=== PATIENT | male | born 1980 | race Hispanic/Latino ===

== ENCOUNTER 2017-06-12 21:57 | Emergency (ER) | payer SELFPAY ==
[2017-06-12] MEDS ORDERED: MORPHINE 4 MG/ML SYR ONE (22:54)
[2017-06-12] MEDS ORDERED: ONDANSETRON 4 MG/2 ML VIAL ONE (22:54)
[2017-06-12] MEDS ORDERED: NA CHLORIDE 0.9% 1,000 ML ONE (22:54)
[2017-06-12 23:12] LABS: Absolute Lymphocytes (CBC) 3.7 K/uL (0.7-4.9); Absolute Monocytes 1.1 K/uL (0.1-1.3); Basophils % 0.7 % (0-1.3); Eosinophils % 0.8 % (0-4.4); Hematocrit 40.5 % (39.6-49.0); Lymphocytes % 26.6 % (15.3-44.8); MCH 30.9 pg (27.0-35.0); MCV 91.3 fL (80-100); RBC Red Blood Cell Count 4.44 M/uL (4.33-5.43)
[2017-06-12 23:17] LABS: Urine Blood TRACE (NEG); Urine Glucose NEGATIVE (NEG); Urine Protein NEGATIVE (NEG); Urine Specific Gravity 1.025 (1.005-1.030)
[2017-06-12 23:24] LABS: Potassium 4.1 mEq/L (3.6-5.0)
[2017-06-12 23:27] LABS: Urine Bacteria <20 /HPF (NONE SEEN); Urine Culture Reflex Order NOT NEEDED
[2017-06-12 23:30] LABS: Albumin 4.1 g/dL (3.2-5.5); Bilirubin Direct 0.1 mg/dL (0-0.2); Bilirubin Total 0.3 mg/dL (0.3-1.2); Protein, Total 6.8 g/dL (6.0-8.3)
--- NOTE | 2017-06-13 00:42 | EDPHYS ---
Physician Documentation [facility] Name: Tom Thrasher Age: 36 yrs Sex: Male : 1980 Arrival Date: 06/12/2017 Time: 22:02 Bed 4 Private MD: ED Physician Monroe Colunga HPI: 06/12 22:48 This 36 yrs old Male presents to ER via Ambulatory with complaints of Flank pkl Pain, Decreased Appetite, Urinary Frequency. 22:48 The patient complains of pain in the left flank. The pain radiates to the left groin. pkl Onset: The symptoms/episode began/occurred 1 week(s) ago, and became worse today. Historical: - Allergies: 22:24 No Known Allergies; fc - Home Meds: 22:24 None [Active]; fc - PMHx: 22:24 Anxiety; Depression; fc - PSHx: 22:24 None; fc - Immunization history:: Last tetanus immunization: up to date. - Social history:: Smoking status: Patient uses tobacco products, smokes one-half pack cigarettes per day, Patient uses alcohol, occasionally. Patient/guardian denies using street drugs, the patient reports quitting approximately 1 years ago. ROS: 22:48 Eyes: Negative for injury, pain, redness, and discharge, ENT: Negative for injury, pkl pain, and discharge, Neck: Negative for injury, pain, and swelling, Cardiovascular: Negative for chest pain, palpitations, and edema, Respiratory: Negative for shortness of breath, cough, wheezing, and pleuritic chest pain, Abdomen/GI: Negative for abdominal pain, nausea, vomiting, diarrhea, and constipation. 22:48 Back: Positive for flank pain, on the left. 22:48 : Positive for urinary symptoms, frequency. 22:48 MS/extremity: Negative for acute changes. 22:48 Skin: Negative for rash. 22:48 Neuro: Negative for altered mental status. Exam: 22:48 Head/Face: Normocephalic, atraumatic. Eyes: Pupils equal round and reactive to light, pkl extra-ocular motions intact. Lids and lashes normal. Conjunctiva and sclera are non-icteric and not injected. Cornea within normal limits. Periorbital areas with no swelling, redness, or edema. ENT: Nares patent. No nasal discharge, no septal abnormalities noted. Tympanic membranes are normal and external auditory canals are clear. Oropharynx with no redness, swelling, or masses, exudates, or evidence of obstruction, uvula midline. Mucous membranes moist. Neck: Trachea midline, no thyromegaly or masses palpated, and no cervical lymphadenopathy. Supple, full range of motion without nuchal rigidity, or vertebral point tenderness. No Meningismus. Chest/axilla: Normal chest wall appearance and motion. Nontender with no deformity. No lesions are appreciated. Cardiovascular: Regular rate and rhythm with a normal S1 and S2. No gallops, murmurs, or rubs. Normal PMI, no JVD. No pulse deficits. Respiratory: Lungs have equal breath sounds bilaterally, clear to auscultation and percussion. No rales, rhonchi or wheezes noted. No increased work of breathing, no retractions or nasal flaring. Abdomen/GI: Soft, non-tender, with normal bowel sounds. No distension or tympany. No guarding or rebound. No evidence of tenderness throughout. 22:48 Back: pain, that is moderate, of the left flank. 22:48 : Exam negative for acute changes. 22:48 Musculoskeletal/extremity: Exam is negative for acute changes. 22:48 Skin: Exam negative for rash. 22:48 Neuro: Orientation: is normal, Mentation: is normal, Cranial nerves: grossly normal, Motor: is normal. Vital Signs: 22:05 Weight 99.79 kg (R); Height 5 ft. 8 in. (172.72 cm) (R); Pain 10/10; fc 22:25 BP 134 / 86; Pulse 89; Resp 16; Temp 98.9(O); Pulse Ox 100% ; ao 06/13 00:22 BP 108 / 71; Pulse 80; Resp 16; Temp 98.6; Pulse Ox 99% on R/A; Pain 0/10; ak1 06/12 22:05 Body Mass Index 33.45 (99.79 kg, 172.72 cm) fc MDM: 06/12 22:42 Patient medically screened. pkl 06/13 00:39 Data reviewed: vital signs, nurses notes, lab test result(s), radiologic studies, CT pkl scan. 06/12 22:47 Order name: Amylase, Serum; Complete Time: 00:37 pkl 06/12 22:47 Order name: Basic Metabolic Panel; Complete Time: 00:37 pkl 06/12 22:47 Order name: CBC with Diff; Complete Time: 00:37 pkl 06/12 22:47 Order name: Creatinine for Radiology; Complete Time: 00:37 pkl 06/12 22:47 Order name: Hepatic Function; Complete Time: 00:37 pkl 06/12 22:47 Order name: Lipase; Complete Time: 00:37 pkl 06/12 22:47 Order name: Urine Microscopic Only; Complete Time: 00:37 pkl 06/12 22:47 Order name: IV Saline Lock; Complete Time: 22:50 pkl 06/12 22:47 Order name: CT Stone Protocol pkl 06/12 23:08 Order name: Urine Dipstick--Ancillary (enter results); Complete Time: 00:37 oe 06/12 22:47 Order name: Labs collected and sent; Complete Time: 22:57 pkl 06/12 22:47 Order name: Urine Dipstick-Ancillary (obtain specimen); Complete Time: 23:01 pkl Administered Medications: 06/12 22:57 Drug: NS 0.9% 1000 ml Route: IV; Rate: 1000 ml; Site: right antecubital; ak1 06/13 00:56 Follow up: IV Status: Completed infusion ak1 06/12 22:57 Drug: Zofran 4 mg Route: IVP; Site: right antecubital; ak1 23:12 Follow up: Response: No adverse reaction ak1 23:12 Drug: morphine 4 mg Route: IVP; Site: right antecubital; ak1 23:12 Follow up: Response: No adverse reaction ak1 06/13 00:55 Drug: Cipro 500 mg Route: PO; ak1 00:56 Follow up: Response: No adverse reaction ak1 Disposition: 06/13/17 00:41 Discharged to Home. Impression: Left flank pain. Leukocytosis. Constipation. - Condition is Stable. - Prescriptions for Ultram 50 mg Oral Tablet - take 1 tablet by ORAL route every 8 hours As needed; 20 tablet. Cipro 500 mg Oral Tablet - take 1 tablet by ORAL route every 12 hours for 5 days; 10 tablet. - Medication Reconciliation Form, Thank You Letter, Antibiotic Education, Prescription Opioid Use form. - Follow up: Private Physician; When: 2 - 3 days; Reason: Re-evaluation by your physician. - Problem is new. - Symptoms have improved. Signatures: Dispatcher [employer] EDMS Monroe Colunga MD MD pkl Daysi Haddad, RN RN Cherry Boothe RN RN ak1 Corrections: (The following items were deleted from the chart) 00:57 00:41 06/13/2017 00:41 Discharged to Home. Impression: Left flank pain. Leukocytosis. ak1 Constipation. Condition is Stable. Forms are Medication Reconciliation Form, Thank You Letter, Antibiotic Education, Prescription Opioid Use. Follow up: Private Physician; When: 2 - 3 days; Reason: Re-evaluation by your physician. Problem is new. Symptoms have improved. pkl
--- NOTE | 2017-06-13 00:42 | ER ---
Nurse's Notes [facility] Name: Tom Thrasher Age: 36 yrs Sex: Male : 1980 Arrival Date: 06/12/2017 Time: 22:02 Bed 4 Private MD: Diagnosis: Left flank pain. Leukocytosis. Constipation Presentation: 06/12 22:05 Presenting complaint: Patient states: that for the past week he has been having left lower back pain that radiates around to his left groin area. Have urinary frequency and loss of appetite. Transition of care: patient was not received from another setting of care. Onset of symptoms was June 05, 2017. Care prior to arrival: None. 22:05 Method Of Arrival: Ambulatory 22:05 Acuity: [id number] 3 22:37 Initial Sepsis Screen: Does the patient meet any 2 criteria? No. Patient's initial ak1 sepsis screen is negative. Does the patient have a suspected source of infection? No. Patient's initial sepsis screen is negative. Historical: - Allergies: 22:24 No Known Allergies; - Home Meds: 22:24 None [Active]; fc - PMHx: 22:24 Anxiety; Depression; fc - PSHx: 22:24 None; fc - Immunization history:: Last tetanus immunization: up to date. - Social history:: Smoking status: Patient uses tobacco products, smokes one-half pack cigarettes per day, Patient uses alcohol, occasionally. Patient/guardian denies using street drugs, the patient reports quitting approximately 1 years ago. Screenin:24 Abuse screen: Denies threats or abuse. Nutritional screening: No deficits noted. Tuberculosis screening: No symptoms or risk factors identified. Fall Risk None identified. Assessment: 22:36 General: Appears in no apparent distress. Behavior is calm, cooperative. Pain: ak1 Complains of pain in back. Neuro: No deficits noted. Cardiovascular: No deficits noted. Respiratory: No deficits noted. GI: No signs and/or symptoms were reported involving the gastrointestinal system. : Reports urinary frequency. EENT: No signs and/or symptoms were reported regarding the EENT system. Derm: No signs and/or symptoms reported regarding the dermatologic system. Musculoskeletal: No signs and/or symptoms reported regarding the musculoskeletal system. Vital Signs: 22:05 Weight 99.79 kg (R); Height 5 ft. 8 in. (172.72 cm) (R); Pain 10/10; fc 22:25 BP 134 / 86; Pulse 89; Resp 16; Temp 98.9(O); Pulse Ox 100% ; ao 06/13 00:22 BP 108 / 71; Pulse 80; Resp 16; Temp 98.6; Pulse Ox 99% on R/A; Pain 0/10; ak1 06/12 22:05 Body Mass Index 33.45 (99.79 kg, 172.72 cm) ED Course: 06/12 22:02 Patient arrived in ED. do 22:05 Arm band placed on Patient placed in an exam room, on a stretcher. fc 22:23 Triage completed. fc 22:24 Patient has correct armband on for positive identification. Placed in gown. Bed in low fc position. Call light in reach. 22:24 No provider procedures requiring assistance completed. fc 22:25 Cherry Robertson, RN is Primary Nurse. ak1 22:36 Pulse ox on. NIBP on. ak1 22:37 Inserted saline lock: 20 gauge in right antecubital area, using aseptic technique. ak1 Blood collected. 22:42 Monroe Colunga MD is Attending Physician. pkl 23:26 CT Stone Protocol In Process Unspecified. EDMS 06/13 00:56 IV discontinued, intact, bleeding controlled, No redness/swelling at site. Pressure ak1 dressing applied. Administered Medications: 06/12 22:57 Drug: NS 0.9% 1000 ml Route: IV; Rate: 1000 ml; Site: right antecubital; ak1 06/13 00:56 Follow up: IV Status: Completed infusion ak1 06/12 22:57 Drug: Zofran 4 mg Route: IVP; Site: right antecubital; ak1 23:12 Follow up: Response: No adverse reaction ak1 23:12 Drug: morphine 4 mg Route: IVP; Site: right antecubital; ak1 23:12 Follow up: Response: No adverse reaction ak1 06/13 00:55 Drug: Cipro 500 mg Route: PO; ak1 00:56 Follow up: Response: No adverse reaction ak1 Outcome: 00:41 Discharge ordered by . pkl 00:57 Discharged to home ambulatory, with family. ak1 00:57 Condition: good 00:57 Discharge instructions given to patient, Instructed on discharge instructions, follow up and referral plans. no drinking with medication, no driving heavy equipment, medication usage, Demonstrated understanding of instructions, follow-up care, medications, Prescriptions given X 2. 00:57 Patient left the ED. ak1 Signatures: Dispatcher [employer] EDMS Monroe Colunga MD MD pkl Chretien, Felicia, RN RN fc Krenek, Amber, RN RN ak1 Dennis Landry RN RN ao Ogletree, Danielle do
[2017-06-13] MEDS ORDERED: CIPROFLOXACIN HCL 500 MG TAB ONE (00:50)
--- NOTE | 2017-06-13 14:24 | RAD REPORT ---
EXAM DESCRIPTION: CT - Stone Protocol - 06/13/2017 6:36 am CLINICAL HISTORY: Flank pain. COMPARISON: None. TECHNIQUE: Axial images were obtained without oral or IV contrast. Lack of contrast limits solid org an and vascular assessment. The [id number] spans the entirety of the system partially obscuring uppermost abdomen and lung bases. Coronal reformatted images were obtained and reviewed. All CT scans are performed using dose optimization technique as appropriate and may include automated exposure control or mA/KV adjustment according to patient size. FINDINGS: The lower lung blunt are clear. Imaged portions of the liver and spleen show no suspicious findings on non-contrast imaging. The panc reas and adrenal glands are normal. No pathologic lymphadenopathy in the abdomen or pelvis. No urinary tract stones or obstructive uropathy. No bowel obstruction, free air, free fluid or abscess. Normal appendix noted.Prominent fecal retentio n. No significant bony abnormality. IMPRESSION: No urinary tract stones or obstructive uropathy. Fecal retention.
== END 2017-06-13 00:57 | disposition home or self-care (01) ==
LOC: ER 21:57
DX: K59.00 Constipation, unspecified (principal); D72.829 Elevated white blood cell count, unspecified; F17.210 Nicotine dependence, cigarettes, uncomplicated
CPT/HCPCS: 36415; 74176; 76377; 80048; 80076; 81003; 81015; 82150; 83690; 85025; 96361; 96374; 96375; 99284; J2405; J7030